=== PATIENT | male | born 2005 | race Caucasian/White ===

== ENCOUNTER 2024-01-21 06:09 | Emergency (ER) | payer OTHER, MEDICAID, SELFPAY ==
[2024-01-21 06:11] VITALS: BP 137/79; PULSE 72; RESP 20; TEMP 36.4; O2SAT 100
[2024-01-21 06:34] LABS: Basophils Absolute Auto 0.1 K/mm3 (0.0-0.1); Basophils Percent Auto 0.6 % (0.2-1.2); Eosinophils Absolute Auto 0.2 K/mm3 (0-0.3); Eosinophils Percent Auto 1.8 % (0-4.4); Hematocrit 47.8 % (42.0-52.0); Hemoglobin 16.4 g/dL (14.0-18.0); Immature Granulocyte Absolute 0.05 K/mm3 (0.00-0.031); Immature Granulocyte Percent A 0.5 % (0-0.5); Lymphocytes Absolute Auto 2.83 K/mm3 (0.9-3.2); Lymphocytes Percent Auto 27.7 % (18.3-44.2); Mean Corpuscular HGB Conc 34.3 g/dl (32-36); Mean Corpuscular Hemoglobin 29.3 pg (26-34); Mean Corpuscular Volume 85.5 fl (80-100); Mean Platelet Volume 9.6 fl (7.4-10.4); Monocytes Absolute Auto 0.6 K/mm3 (0.1-0.6); Neutrophils Absolute Auto 6.5 K/mm3 (1.3-6.7); Neutrophils Percent Auto 63.4 % (45.5-73.1); Platelet Count Result 294 k/mm3 (150-375); Red Blood Count 5.59 M/mm3 (4.6-6.20); Red Cell Distribution Width 12.2 % (11.5-14.5); White Blood Count 10.2 K/mm3 (4.5-10.0)
[2024-01-21 06:35] LABS: Appearance Urine Clear (Clear); Bilirubin Urine Negative (Negative); Blood Urine Negative (Negative); Color Urine Yellow (Yellow); Glucose Urine UA Negative (Negative); Ketones Urine Trace mg/dL (Negative); Leukocyte Esterase Ur Negative LEU/UL (Negative); Nitrate Urine Negative (Negative); Protein Urine Negative (Negative); Specific Grav Ur 1.023 (1.001-1.035)
[2024-01-21 06:38] VITALS: BP 149/79; PULSE 77
[2024-01-21 06:39] VITALS: BP 113/99; BP 130/97; PULSE 103; PULSE 92
[2024-01-21 06:43] LABS: Alanine Aminotransferase 23 U/L (6-50); Albumin Level 4.8 g/dL (3.7-5.6); Alkaline Phosphatase 94 U/L (58-237); Anion Gap 11 mmol/L (4-12); Aspartate Amino Transferase 27 U/L (17-59); Bilirubin,Total 0.5 mg/dL (0.2-1.3); Blood Urea Nitrogen 12 mg/dL (8-21); Calcium 9.8 mg/dL (8.9-10.7); Carbon Dioxide 25 mmol/L (22-30); Chloride 104 mmol/L (98-107); Estimated CRCL calculation 125 ml/min; Estimated Glomerular Filt Rate > 60; Glucose 104 mg/dL (65-110); Lipase 108 U/L (23-300); Potassium 3.5 mmol/L (3.4-5.0); Sodium 140 mmol/L (134-143)
[2024-01-21 07:05] LABS: Add Urine Microscopic? NO
[2024-01-21 07:13] LABS: Barbiturate Screen Urine Negative (Negative); Benzodiazepines Screen Urine Negative (Negative)
--- NOTE | 2024-01-21 07:15 | ED.GENADULT ---
HPI - General Adult General Chief complaint: Nausea/Vomiting/Diarrhea Stated complaint: n/v. Vomiting blood Time Seen by Provider: 01/21/24 06:54 History of Present Illness HPI narrative: 18-year-old Male presenting to the emergency department for evaluation of persistent nausea and vomiting patient states for the last few years he has had increased episodes of nausea and vomiting. Patient states he does attributed to different foods that he eats. Patient does admit to frequent marijuana use. Patient states this morning he had emesis and did have some specks of blood in it so he became concerned and presented to the emergency department for evaluation. Related Data Allergies Allergy/AdvReac Type Severity Reaction Status Date / Time No Known Allergies Allergy Verified 01/21/24 06:14 Review of Systems Review of Systems: All systems reviewed & are unremarkable except as noted in HPI and below Exam Narrative: APPEARANCE: Well appearing, no pain, no distress, well-nourished. HEAD: normocephalic, atraumatic. EYES: PERRLA/EOMI, conjunctivae clear. NOSE: Normal no drainage EARS:TMS clear with good light reflex. THROAT: Pharynx clear, no exudate. NECK: Supple. No adenopathy, no masses. RESPIRATORY: Airway patent, respirations nonlabored. Clear to auscultation bilaterally, no rales, rhonchi, wheezing. CARDIOVASCULAR: Regular rate and rhythm without murmurs rubs or gallops. ABDOMINAL: Soft, nontender, nondistended, normal bowel sounds MUSCULOSKELETAL: Moves all extremities. Strength/ROM intact, No edema, No calf tenderness. NEURO: Alert. Cranial nerves II through XII intact. Grossly intact SKIN: Warm, dry. Normal Color Course Vital Signs Vital signs: Vital Signs Temperature 97.5 F L 01/21/24 06:11 Pulse Rate 72 01/21/24 06:11 Respiratory Rate 20 01/21/24 06:11 Blood Pressure 137/79 01/21/24 06:11 Pulse Oximetry 100 01/21/24 06:11 Oxygen Delivery Room Air 01/21/24 06:11 Temperature 98.1 F 01/21/24 09:30 Pulse Rate 84 01/21/24 09:30 Respiratory Rate 14 01/21/24 09:30 Blood Pressure 124/73 01/21/24 09:30 Pulse Oximetry 100 01/21/24 09:30 Oxygen Delivery Room Air 01/21/24 06:11 Medical Decision Making MDM Narrative Medical decision making narrative: 18-year-old male present to the emergency department for evaluation for recurrent nausea and vomiting. Patient is afebrile but does have a leukocytosis of 10.2 in a stable hemoglobin of 16.4, no abnormalities on the patient's CMP and UA had no significant abnormalities, patient was positive for cannabinoids but does admit to smoking THC. Patient was negative for influenza RSV and for COVID. Patient was updated the results of his workup and was strongly recommended to refrain from THC and to educate himself on cannabinoid hyperemesis syndrome. Patient was also encouraged to have close follow-up with GI due to his recurrent symptoms. Patient was also advised to follow a bland diet and take omeprazole for the next 14 days. Differential Diagnosis Differential Diagnosis: Cannabinoid hyperemesis syndrome, gastritis, gastroenteritis Vital Signs Vital Signs: Vital Signs Temperature 97.5 F L 01/21/24 06:11 Pulse Rate 72 01/21/24 06:11 Respiratory Rate 20 01/21/24 06:11 Blood Pressure 137/79 01/21/24 06:11 Pulse Oximetry 100 01/21/24 06:11 Oxygen Delivery Room Air 01/21/24 06:11 Temperature 98.1 F 01/21/24 09:30 Pulse Rate 84 01/21/24 09:30 Respiratory Rate 14 01/21/24 09:30 Blood Pressure 124/73 01/21/24 09:30 Pulse Oximetry 100 01/21/24 09:30 Oxygen Delivery Room Air 01/21/24 06:11 Lab Data 01/21/24 06:26 01/21/24 06:26 Labs: Lab Results 01/21/24 01/21/24 Range/Units 06:26 06:43 WBC 10.2 H (4.5-10.0) K/mm3 RBC 5.59 (4.6-6.20) M/mm3 Hgb 16.4 (14.0-18.0) g/dL Hct 47.8 (42.0-52.0) % MCV 85.5 (80-100) fl MCH 29.3 (26-34) pg
[2024-01-21 07:17] LABS: Amphetamine Screen Urine Negative (Negative); Cannabinoid Screen Urine Positive (Negative); Methadone Screen Urine Negative (Negative); Opiate Screen Urine Negative (Negative); Phencyclidine Screen Urine Negative (Negative)
[2024-01-21] MEDS: HALOPERIDOL LACTATE 5 MG/ML VIAL IM (07:25)
[2024-01-21 07:27] LABS: Influenza A QL RT-PCR Negative (Negative); Influenza B QL RT-PCR Negative (Negative); RSV RNA, RT-PCR Negative (Negative); SARS-CoV-2 RNA PCR Negative (Negative)
[2024-01-21] MEDS: PANTOPRAZOLE SODIUM IV 40 MG VIAL IV PUSH (07:27)
[2024-01-21] MEDS: SODIUM CHLORIDE 0.9% IV 1,000 ML 999 ML IV CONT (07:27)
[2024-01-21 07:29] LABS: Cocaine Screen Urine Negative (Negative)
[2024-01-21 07:32] VITALS: BP 111/58; PULSE 58; RESP 17; O2SAT 96
[2024-01-21 08:33] VITALS: BP 144/89; PULSE 67; RESP 10; O2SAT 100
[2024-01-21] MEDS: ONDANSETRON INJ 4 MG/2 ML VIAL IV PUSH (09:20)
[2024-01-21 09:30] VITALS: BP 124/73; PULSE 84; RESP 14; TEMP 36.7; O2SAT 100
== END 2024-01-21 09:32 | disposition home or self-care (01) ==
PROVIDERS: Emergency Medicine; Emergency Provider Emergency Medicine
DX: R11.2 Nausea with vomiting, unspecified (principal); Z20.822 Contact with and (suspected) exposure to COVID-19
CPT/HCPCS: 36415; 80053; 80307; 81003; 83690; 85025; 87637; 96361; 96372; 96374; 96375; 99284; C9113; J1630; J2405; J7030

== ENCOUNTER 2025-05-12 19:20 | Emergency (ER) | payer OTHER, SELFPAY ==
[2025-05-12] VITALS (23 sets, daily range): BP systolic 109–144; BP diastolic 58–117; PULSE 61–98; RESP 10–22; TEMP 35.9–36.9; O2SAT 91–100
--- NOTE | ~2025-05-12 | XR_ITS ---
EXAMINATION: XR chest 1V portable 05/12/2025 21:18 INDICATION: Overdose PROCEDURE: AP portable chest COMPARISON: No prior studies for comparison. FINDINGS: The lungs are clear. The cardiomediastinal silhouette is within normal limits. There are no pleural effusions. There is no pneumothorax suspected. IMPRESSION: 1: NO ACUTE CARDIOPULMONARY DISEASE. Reviewed, dictated and finalized at location A.
--- OUTSIDE RECORDS SUMMARY | 2025-05-12 19:22 | XMS_ITS | Clinical Summary ---
Author Organization [facility] Address [address] [place] [address] Care Team Providers Care Registered Public Health Nurse Name Role Phone None, Provider MD Primary Care Provider Unavaila ble None, Provider MD Unavailable Unavailable Allergies No known active allergies Medications busPIRone (BUSPAR) 5 MG tablet Take 1 tablet (5 mg total) by mouth 2 (two) times daily. Active lamoTRIgine (LAMICTAL) 100 MG tablet Take 1 tablet (100 mg total) by mouth daily. 3 Active busPIRone (BUSPAR) 15 MG tablet Take 1 tablet (15 mg total) by mouth 3 (three) times daily as needed. FOR ANXIETY 3 Active risperiDONE (RISPERDAL) 0.5 MG tablet Take 1 tablet (0.5 mg total) by mouth daily. 3 Active risperiDONE (RISPERDAL) 1 MG tablet Take 1 tablet (1 mg total) by mouth daily. 3 Active ondansetron (ZOFRAN-ODT) 4 MG disintegrating tablet Take 1 tablet (4 mg total) by mouth every 8 (eight) hours as needed for Nausea. 15 tablet 3 Active lidocaine (LIDO SCAR) 4 % patch Place 1 patch onto the skin daily. Remove & Discard patch within 12 hours or as directed 30 patch 3 Active ondansetron (ZOFRAN-ODT) 4 MG disintegrating tablet Take 1 tablet (4 mg total) by mouth every 8 (eight) hours as needed for Nausea. 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 Gender Identity Not on file Sexual Orientation Not on file Last Filed Vital Signs Vital Sign Reading Time Taken Comments Blood Pressure 130/86 03/25/2024 8:58 PM CDT Pulse 93 03/25/2024 8:58 PM CDT Temperature 36.9 C (98.5 F) 03/25/2024 8:58 PM CDT Respiratory Rate 20 03/25/2024 8:58 PM CDT Oxygen Saturation 100% 03/25/2024 8:58 PM CDT Inhaled Oxygen Concentration - - Weight 74.8 kg (165 lb) 03/25/2024 8:58 PM CDT Height 170.2 cm (5' 7) 03/25/2024 8:58 PM CDT Body Mass Index 25.84 03/25/2024 8:58 PM CDT Plan of Treatment Health Maintenance Due Date Last Done Comments Annual Physical 2007 Meningococcal B Vaccine (1 of 2 - Standard) 2020 Hepatitis C 2022 COVID-19 Vaccine ( season) 2024 DTaP, Tdap and Td Vaccines (6 - Td or Tdap) 09/25/2032 09/25/2022, 04/13/2015, 02/29/2008, Additional history exists Pneumococcal Vaccine: Pediatrics (0 to 5 Years) and At-Risk Patients (6 to 49 Years) Aged Out 04/13/2005, 2004, 2004 No longer eligible based on patient's age to complete this topic Hepatitis B Vaccines Completed 07/21/2005, 2004, 2004, Additional history exists HPV Vaccines Completed 07/03/2019, 08/0 09/2016, 04/12/2016 Meningococcal Vaccine Completed 05/06/2022 RSV Immunizations Under 20 Months Aged Out No longer eligible based on patient's age to complete this topic Insurance MEDICAID Care Teams Registered Public Health Nurse Relationship Specialty Start Date End Date None, Provider, MD PCP - General UNKNOWN PHYSICIAN SPECIALTY 10/07/22 None, Provider, MD UNKNOWN PHYSICIAN SPECIALTY 10/07/22
--- OUTSIDE RECORDS SUMMARY | 2025-05-12 19:22 | XMS_ITS | Patient Health Record ---
Author Organization [facility] Address [address] [place] [address] Care Team Providers Care Appraiser Art Name Role Phone Sheila Fletcher Primary Care Provider [phone] Unavailable [phone] Allergies No Known Allergies Reason For Referral No Information Medications Medication SIG (Take, Route, Frequency, Duration) Notes Start Date End Date Status risperiDONE 0.25 MG 1 tablet at bedtime for 2 weeks then discontinue Once a day; Duration: 14 days Not-Taking busPIRone HCl 30 MG TAKE 1 TABLET BY [facility] TWICE DAILY Twice a day; Duration: 30 days Active cloNIDine HCl 0.1 MG 1 tablet Orally Three times a day; Duration: 30 days As needed for anxiety 04/24/2023 Active Ibuprofen 200 MG 1 tablet with food o r milk as needed Orally Three times a day; Duration: 30 days Active OXcarbazepine 150 MG 1 tablet Orally Twi ce a day; Duration: 30 days 12/19/2023 Active Escitalopram Oxalate 10 MG 1 tablet Orally Once a day; Duration: 30 days 02/28/2024 Active traZODone HCl 150 MG 0.5 - 1 tablet at bedtime Orally Once a day; Duration: 30 days As needed for insomnia Active Omeprazole 20 MG 1 capsule 30 minutes before morning meal Orally Once a day; Duration: 30 days 01/24/2024 Active Social History Tobacco Use: Social History Observation Description Date Details (start date - stop date) Never Smoker NA - NA Sex Assigned At : Social History Observation Description Sex Assigned At Male Dont use, Tobacco Use/Smoking Question Answer Notes Are you a Uses tobacco in other forms Additional Findings: Tobacco User e-Cigarette Alcohol Screen (Audit-C) Question Answer Notes Did you have a drink containing alcohol in the p ast year? 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) Chemical dependency (F19.20) Active confirmed Problem Anxiety about health (024760088) Anxiety about health (F41.8) Active confirmed Problem Nightmares (557410809) Nightmares (F51.5) Active confirmed Problem Acid reflux (685032721) Acid reflux (K21.9) Active confirmed Problem Polysubstance abuse (176271933) Polysubstance abuse (F19.10) Active confirmed Plan Of Treatment No Information Insurance Providers Payer Name Payer Address Payer Phone Subscriber Number Group Number Insured Name Patient Relationship to Insured Coverage Start Date Coverage End Date [facility] [address] [place] [address] [id number] Feli Reginaldo Self - patient is the insured 3 [address] [place] [address] [id number] Reginaldo Edmond Self - patient is the insured 3 MEDICAID [facility] [address] [place] [address] [id number] Reginaldo Edmond Self - patient is the insured 3 3 Medical (General) History Medical History History ICD Code asthma Surgical History Surgery Date(Month/Year) Hospitalization History Reason Date(Month/Year) [facility] 12/2023 Chest pain - [facility] 03/14 23 inpatient psychiatric hospitalization
--- OUTSIDE RECORDS SUMMARY | 2025-05-12 19:22 | XMS_ITS | Encounter Summary ---
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 us Historical Provider Final Res ult documented in this encounter Visit Diagnoses Not on filedocumented in this encounter Additional Health Concerns Infection Onset Date Last Indicated Resolved Time COVID: Suspected 07/16/2024 07/16/2024 07/17/2024 12:18 AM CDT COVID: Suspected 12/09/2024 12/09/2024 12/09/2024 3:59 PM CDT COVID: Suspected 02/11/2025 02/11/2025 02/11/2025 2:23 PM CDT RSV, droplet 02/11/2025 02/11/2025 02/18/2025 7:2 7 PM CDT COVID: Suspected 03/12/2025 03/12/2025 03/12/2025 12:16 PM CDT documented as of this encounter Care Teams Director Hardware Relationship Specialty Start Date End Date Bogdan Garcia MD [address] [place] [address] PCP - General Family Medicine 04/01/19 07/17/23 No, Physician PCP - General 07/18/23 documented as of this encounter
--- OUTSIDE RECORDS SUMMARY | 2025-05-12 19:22 | XMS_ITS | Clinical Summary ---
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 Name Role Phone No, Physician Primary Care Provider [phone] Allergies No known active allergies Medications lamoTRIgine (LaMICtal) 100 mg tablet Take 1 tablet (100 mg total) by mouth 2 (two) times a day Active busPIRone (BUSPAR) 30 mg tablet Take 1 tablet (30 mg total) by mouth 3 (three) times a day Active QUEtiapine XR (SEROquel XR) 150 mg 24 hr tablet Take 1 tablet (150 mg total) by mouth every evening Active cloNIDine (CATAPRES) 0.1 mg tablet Take 1 tablet (0.1 mg total) by mouth daily 04/24/2023 Active traZODone (DESYREL) 50 mg tablet 1 tablet (50 mg total) nightly Active prazosin (MINIPRESS) 2 mg capsule daily 05/22/2023 Active promethazine (PHENERGAN) 25 mg tablet Take 1 tablet (25 mg total) by mouth every 6 (six) hours as needed for nausea or vomiting 15 tablet 07/17/2024 Active amoxicillin-cla vulanate (AUGMENTIN) 875-125 mg per tablet Take 1 tablet by mouth every 12 (twelve) hours 14 tablet 12/09/2024 Active meloxicam (MOBIC) 7.5 mg tablet Take 1 tablet (7.5 mg total) by mouth daily 20 tablet 02/11/2025 Active Active Problems Problem Noted Date Diagnosed Date Dislocation of right ankle joint, initial encoun ter 06/24/2023 Conduct disorder, adolescent-onset type 04/25/20 17 Phimosis 02/24/2009 Encounters Date Type Department Care Team Description 03/12/2025 11:36 AM CDT - 03/12/2025 2:18 PM CDT Emergency [facility] Emergency Department [address] [place] [address] Jose Armando Mitchell, DO Seizure-like activity (HCC) (Primary Dx); Polysubstance abuse (HCC) Discharge Disposition: Discharge to home or self care 02/11/2025 1:54 PM CDT - 02/11/2025 3:15 PM CDT Emergency [facility] Emergency Department [address] [place] [address] Acute pain of right shoulder (Primary Dx); Acute upper respiratory infection due to respiratory syncytial virus (RSV); Screening examination for STD (sexually transmitted disease) Discharge Disposition: Discharge to home or self care from Last 3 Months Immunizations Immunization Administration Dates Next Due DTaP 02/29/2008,04/13/2005 DTaP / Hep B / IPV 2004,2004 DTaP 5 Pertussis 04/13/2015, 8,2004,11/08,2004 HPV, Unspecified 07/03/2019,04/25/2017, 6 HPV9 04/25/2017,04/12/2016 Hep A, Pediatric 01/26/2009,03/23/2008 Hep A, Unspecified 01/26/2009,03/23/2008 Hep B, Adolescent or Pediatric 07/21/2005,2003 Hep B, Unspecified 07/21/2005, 5,2004,10/29,2004 HiB 07/21/2005, 5,2004,10/29,2004 Hib (HbOC) 07/21/2005, 5,2004,08/20 IPV 07/10/2019, 5,2004,11/08,2004 Influenza, Quadrivalent, Spl it, Preservative Free, Intramuscular 07/01/2019 Influenza, Unspecified 07/12/2024(Deferr ed: Patient decision),07/12/2023(Deferred: Patient decision),09/04/2014,08/06/2008,2004 MMR 01/26/2009,02/28/2006 Meningococcal Conjugate (Menveo) 05/06/2022 Meningococcal MCV4P (Menactra) 04/12/2016 Pneumococcal Conjugate 7-Valent 2004,10/29 Pneumococcal Conjugate, Unspecified 03/26,2004,2004,10/29 TD Preservative Free 03/12/2023 Tdap 09/25/2022,04/12/2016 Varicella 02/26/2009,02/28/2005 Surgical History Surgery Date Site/Laterality Comments CIRCUMCISION, PRIMARY Family History Medical History Relation Name Comments Diabetes Paternal Grandfather Relation Name Status Comments Paternal Grandfather Social History Tobacco Use Types Packs/Day Years Used Date Smoking Tobacco: Never Smokeless Tobacco: Never Tobacco Cessation:Counseling Given: Not Answered Alcohol Use Standard Drinks/Week Comments Never 0 (1 standard drink = 0.6 oz pur e alcohol) AUDIT-C Answer Date Recorded Q1: How often do you have a drink containing alcohol? Never 06/25/2023 Q2: How many drinks containi ng alcohol do you have on a typical day when you are drinking? Patient does not drink Q3: How often do you have si x or more drinks on one occasion? Never 06/25/2023 PHQ-2 Answer Date Recorded PHQ-2 Score 0 05/17/2019 Personal Safety Answer Date Recorded Have you ever been in or are you currently in a harmful physical or emotional relationship or is someone making you feel afraid or unsafe? 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 Gender Identity Not on file Sexual Orientation Not on file Obstetrics History Last Filed Vital Signs Vital Sign Reading Time Taken Comments Blood Pressure 125/88 03/12/2025 2:00 PM CDT Pulse 76 03/12/2025 2:00 PM CDT Temperature 37.4 C (99.3 F) 03/12/2025 11:05 AM CDT Respiratory Rate 15 03/12/2025 2:00 PM CDT Oxygen Saturation 98% 03/12/2025 2:00 PM CDT Inhaled Oxygen Concentration - - Weight 77.7 kg (171 lb 4.8 oz) 03/12/2025 11:05 AM CDT Height 170 cm (5' 6.93) 12/09/2024 3:09 PM CDT Body Mass Index 26.89 12/09/2024 3:09 PM CDT Plan of Treatment Health Maintenance Due Date Last Done Comments Hepatitis C Screening 2004 Varicella Vaccines (2 of 2 - 2-dose childhood series) 05/21/2009 02/26/2009, 02/28/2005 Depression Screening 07/01/2020 07/01/2019, 04/01/20 19 Meningococcal B Vaccine (1 of 2 - Standard) 2020 Regular Well Visit/Exam 18-64 2022 Influenza Vaccine (#1) 2025 9, 09/04/2014, 08/06/2008, Additional history exists DTaP/Tdap/Td Vaccine (9 - Td or Tdap) 03/12/2033 03/12/2023, 09/25/2022, 04/12/2016, Additional history exists Pneumococcal vaccine <65 Aged Out 005, 2004, 2004, Additional history exists No longer eligible based on patient's age to complete this topic Hepatitis B Screening Completed 07/21/2005 , 07/21/2005, 2004, Additional history exists HPV Vaccines Completed 07/03/2019, 09/2016, 04/25/2017, Additional history exists Meningococcal Vaccine Completed 05/06/2022, 016 Medical Devices Implanted Type Area [employer] Device Identifier Shelf Expiration Date Model / Serial / Lot Synthes 2mm 28mm Self Tap Self Retain Stardrive Cortex T6 Screw Bone 201.376.97 - [id number] Implanted:Qty: 1 on 06/25/2023 by Pete William MD at [facility] Right: Ankle Synthes I 201.376.97 / / Synthes 2mm 26mm Self Tap Self Retain Stardrive Cortex T6 Screw Bone 201.375.97 - [id number] Implanted:Qty: 1 on 06/25/2023 by Pete William MD at [facility] Right: Ankle Synthes I [id number] / / Procedures Procedure Name Priority Date/Time Associated Diagnosis Comments CT HEAD WO CONTRAST ED 03/12/2025 1 2:37 PM CDT EGFR STAT 03/12/2025 11:21 AM CDT URINALYSIS, MICROSCOPIC ONLY STAT 03/12/2025 11:21 AM CDT DIFFERENTIAL AUTO STAT 03/12/2025 11: 21 AM CDT ETHANOL STAT 03/12/2025 11:21 AM CDT DRUGS OF ABUSE SCREEN, URINE WITHOUT CONFIRMATION STAT 03/12/2025 11:21 AM CDT COMPREHENSIVE METABOLIC PANEL STAT 03/12/2025 11:21 AM CDT CBC WITH AUTO DIFFERENTIAL STAT 03/12/2025 11:21 AM CDT URINE CULTURE STAT 03/12/2025 11:21 AM CDT URINALYSIS AND REFLEX TO MICROSCOPIC AND CULTURE STAT 03/12/2025 11:21 AM CDT INFLUENZA A/B, RSV, AND COVID-19 PCR STAT 03/12/2025 11:21 AM CDT TRICHOMONAS VAGINALIS PCR STAT 02/11/2025 2:26 PM CDT N. GONORRHOEAE/C. TRACHOMATIS AMPLIFICATION STAT 02/11/2025 2:26 PM CDT XR SHOULDER LEFT 2 OR MORE VIEWS ED 02/11/2025 1:47 PM CDT INFLUENZA A/B, RSV, AND COVID-19 PCR STAT 02/11/2025 1:36 PM CDT from Last 3 Months Results * CT Head WO Contrast (03/12/2025 12:37 PM CDT) Anatomical Region Laterality Modality Head and Neck N/A Computed Tomogra phy 03/12/2025 1:06 PM CDT Narrative 03/12/2025 1:09 PM CDT EXAM DESCRIPTION: CT HEAD WO CONTRAST REASON FOR STUDY: Seizure, new-onset, no history of trauma TECHNIQUE: Axial images acquired through the brain without intravenous contrast. Images stored on PACS. Automated exposure control was used as a dose optimization technique for this examination. COMPARISON: 07/24/2016. FINDINGS: BRAIN: No acute intraparenchymal hemorrhage, cerebral edema, hydrocephalus, mass, or mass effect. EXTRA-AXIAL SPACES: No extra-axial fluid collection or mass. CALVARIUM: No acute skull base or calvarial abnormality. SINUSES/MASTOIDS: Predominantly clear. ORBITS: No significant abnormality. OTHER: No other significant abnormality. IMPRESSION: No evidence of an acute intracranial abnormality. THIS IS AN ELECTRONICALLY VERIFIED FINAL REPORT 03/12/2025 1:09 PM - Electronically signed by Vladimir Clement M.D. CH: Report ID: [id number] Reading Location: [id number] Procedure Note Vladimir Clement Jr., MD - 03/12/2025 EXAM DESCRIPTION: CT HEAD WO CONTRAST REASON FOR STUDY: Seizure, new-onset, no history of trauma TECHNIQUE: Axial images acquired through the brain without intravenous contrast. Images stored on PACS. Automated exposure control was used asa dose optimization technique for this examination. COMPARISON: 07/24/2016. FINDINGS: BRAIN: No acute intraparenchymal hemorrhage, cerebral edema,hydrocephalus, mass, or mass effect. EXTRA-AXIAL SPACES: No extra-axial fluid collection or mass. CALVARIUM: No acute skull base or calvarial abnormality. SINUSES/MASTOIDS: Predominantly clear. ORBITS: No significant abnormality. OTHER: No other significant abnormality. IMPRESSION: No evidence of an acute intracranial abnormality. THIS IS AN ELECTRONICALLY VERIFIED FINAL REPORT 03/12/2025 1:09 PM - Electronically signed by Vladimir Clement M.D. CH: Report ID: [id number] Reading Location: [place] [address] Jose Armando Mitchell DO IMG CT PROCEDURES Final Res ult * Influenza A/B, RSV, and COVID-19 PCR Nasopharyngeal (03/12/2025 11:21 AM CDT) [facility] COVID-19 RNA Negative Negative Comment:Testing performed by : [address] [address] Influenza A RNA Negative Negative [facility] Comment:Testing performed by : [address] [address] Influenza B RNA Negative Negative [facility] Comment:Testing performed by : [address] [address] RSV RNA Negative Negative [facility] Comment: Interpretive data: Testing performed by [facility]. This test is performed using the Exam18 Xpert Xpress CoV-2/Flu/RSV plus assay. This is a multiplex, real-time reverse transcriptase PCR assay intended for the qualitative detection of nucleic acid from SARS-CoV-2, influenza A, influenza B, and respiratory syncytial virus. This assay has been cleared by the [place] Food and Drug administration. The performance characteristics have been verified by the [facility]. Results must be considered in the clinical context, and a negative result does not rule out infection. Interpretive Data last revised 2023 Testing performed by: [address] [address] Nasopharyngeal 03/12/2025 11 :21 AM CDT 03/12/2025 11:30 AM CDT Narrative JENSEN - 03/12/2025 12:15 PM CDT Is the Patient experiencing symptoms consistent with COVID?->Unknown [facility] MICROBIOLOGY - GENERAL OR DERABLES Final Result Performing Organization Address [facility] Co de Phone Number JENSEN [address] [place] [address] * eGFR (03/12/2025 11:21 AM CDT) Pathologist [facility] eGFR >90 >=60 mL/min/1. 73 m2 Comment: Interpretive Data Reference Interval Normal >/= 90 mL/min/1.73m2 Mildly decreased* 60 - 89 mL/min/1.73m2 Mildly to moderately decreased 45 - 59 mL/min/1.73m2 Moderately to severely decreased 30 - 44 mL/min/1.73m2 Severely decreased 15 - 29 mL/min/1.73m2 Kidney Failure < 15 mL/min/1.73m2 *Relative to young adult level Estimated glomerular filtration rate is determined by the 2020 CKD-EPI equation recommended by the National Kidney Foundation (A Unifying Approach to GFR Estimation: Recommendations of the NKF-ASK Task Force on Reassessing the Inclusion of Race in Diagnosing Kidney Disease, JASN 2020). The CKD-EPI equation should not be used for patients with unstable renal function and has not been validated in children and those over 70. Current interpretive data was last reviewed 2021. Testing performed by: [facility], [address] [place] [address]., [id number] Blood 03/12/2025 11:2 1 AM CDT 03/12/2025 11:30 AM CDT [facility] BLOOD ORDERABLES Final Re sult Performing Organization Address [facility]/ZIP Co de Phone Number JENSEN [address] [place] [address] * (ABNORMAL) Differential, auto (03/12/2025 11:21 AM CDT) Pathologist [facility] Neutrophil abs 10.32(H) 1.50 - 6.50 K/cumm Comment:Testing performed by : [address], [place]., [address] Imm gran abs 0.08 0.00 - 0.10 K/cumm [facility] Comment:Testing performed by : [address], [place]., [address] Lymphocyte abs 2.26 0.80 - 3.30 K/cumm [facility] Comment:Testing performed by : [address], [place]., [address] Monocyte abs 0.58 0.20 - 0.80 K/cumm [facility] Comment:Testing performed by : [address], [place]., [address] Eosinophil abs 0.07 0.00 - 0.50 K/cumm [facility] Comment:Testing performed by : [address], [place]., [address] Basophil abs 0.06 0.00 - 0.10 K/cumm [facility] Comment:Testing performed by : [address] [address] Neutrophil pct 77.3 % [facility] Comment: Interpretive Data Percent cell count reference ranges are not reported, since discordance with absolute values may lead to misinterpretation of CBC data. Current Interpretive Data was last revised on 2018. Testing performed by: [address] [address] Imm gran pct 0.6 % [facility] Comment: Interpretive Data Percent cell count reference ranges are not reported, since discordance with absolute values may lead to misinterpretation of CBC data. Current Interpretive Data was last revised on 2018. Testing performed by: [address] [address] Lymphocyte pct 16.9 % [facility] Comment: Interpretive Data Percent cell count reference ranges are not reported, since discordance with absolute values may lead to misinterpretation of CBC data. Current Interpretive Data was last revised on 2018. Testing performed by: [address] [address] Monocyte pct 4.3 % [facility] Comment: Interpretive Data Percent cell count reference ranges are not reported, since discordance with absolute values may lead to misinterpretation of CBC data. Current Interpretive Data was last revised on 2018. Testing performed by: [address] [address] Eosinophil pct 0.5 % JENSEN Comment: Interpretive Data Percent cell count reference ranges are not reported, since discordance with absolute values may lead to misinterpretation of CBC data. Current Interpretive Data was last revised on 2018. Testing performed by: [address] [address] Basophil pct 0.4 % JENSEN Comment: Interpretive Data Percent cell count reference ranges are not reported, since discordance with absolute values may lead to misinterpretation of CBC data. Current Interpretive Data was last revised on 2018. Testing performed by: [address] [address] Blood 03/12/2025 11:2 1 AM CDT 03/12/2025 11:30 AM CDT us [facility] BLOOD ORDERABLES Final Re sult JENSEN [address] [facility] Department [place] [address] * (ABNORMAL) Urinalysis reflex to microscopic and culture Urine (03/12/2025 11:21 AM CDT) Color, ur Yellow Yellow Comment:Testing performed by : [address] [address] Clarity, ur Turbid(A) Clear JENSEN Comment:Testing performed by : [address] [address] Specific gravity, ur 1.025 1.003 - 1.030 JENSEN Comment:Testing performed by : [address] [address] pH, urine 5.5 JENSEN Comment: Interpretive Data U rine pH is affected by diet, medications, systemic acid-base disturbances, and renal tubular function. pH may affect urinary stone formation. For example, urine pH below 6.0 may help reduce the tendency for calcium phosphate stones and pH greater than 6.0 may reduce the tendency for uric acid stone formation. Source: [facility] Current Interpretive Data was last revised on 2017 Testing performed by: [facility], [address] [place] [address], [place]., [address] Protein, ur ql Negative Negative JENSEN ISLAS Comment:Testing performed by : [address] [address] Glucose, ur ql Negative Negative JENSEN Comment:Testing performed by : [address], [place]., [address] Ketones, ur Negative Negative JENSEN Comment:Testing performed by : [address] [address] Bilirubin, ur Negative Negative JENSEN Comment:Testing performed by : [address], [place]., [address] Blood, ur 1+(A) Negative J[facility]EN ISLAS Comment:Testing performed by : [address], [place]., [address] Urobilinogen, ur <2.0 <2.0 mg/dL JENSEN Comment:Testing performed by : [address] [address] Nitrite, ur Negative Negative JENSEN Comment:Testing performed by : [address], [place]., [address] Leukocyte esterase, ur Negative Negative JENSEN Comment:Testing performed by : [address] [address] UA reflex comment Reflex to microscopic UA will be performed. JENSEN Comment:Testing performed by : [address] [address] Urine 03/12/2025 11:2 1 AM CDT 03/12/2025 11:30 AM CDT us [facility] MICROBIOLOGY - GENERAL OR DERABLES Final Result JENSEN ISLAS [address] [facility] Department [place] [address] * (ABNORMAL) CBC with auto differential (03/12/2025 11:21 AM CDT) [facility] WBC 13.37(H) 3.80 - 9.90 K/cumm Comment:Testing performed by : [address], [address] Hgb 17.9(H) 13.0 - 17.5 g/dL JENSEN Comment:Testing performed by : [address], [address] Hct 51.2(H) 38.9 - 50.3 % JENSEN Comment:Testing performed by : [address], [address] Plt 259 150 - 400 K/cumm JENSEN Comment:Testing performed by : [address], [address] MPV 10.0 9.1 - 12.3 fL JENSEN Comment:Testing performed by : [address], [address] RBC 6.08(H) 4.30 - 5.80 M/cumm JENSEN Comment:Testing performed by : [address], [address] MCV 84.2 81.3 - 96.4 fL JENSEN Comment:Testing performed by : [address], [address] MCH 29.4 27.1 - 33.3 pg JENSEN Comment:Testing performed by : [address], [address] MCHC 35.0 32.3 - 35.7 g/dL JENSEN Comment:Testing performed by : [address], [address] RDW CV 13.1 11.1 - 14.9 % JENSEN Comment:Testing performed by : [address], [address] RDW SD 39.9 35.7 - 48.1 fL JENSEN Comment:Testing performed by : [address], [address] NRBC abs 0.00 0.00 - 0.01 K/cumm JENSEN Comment:Testing performed by : [facility], [address] [place] [address]., [address] Blood 03/12/2025 11:2 1 AM CDT 03/12/2025 11:30 AM CDT [facility] BLOOD ORDERABLES Final Re sult JENSEN [address] [facility] Department [place] [address] * (ABNORMAL) Drugs of Abuse Screen, Urine without Confirmation (03/12/2025 11:21 AM CDT) [facility] Amphetamine, ur Not Detected CutOff 500ng/mL Comment: Interpretive Data - Amphetamines: Samples containing greater than 500 ng/mL d-methamphetamine or other cross-reacting amphetamine compounds are reported as positive. Amphetamine immunoassays are subject to significant false positive rates due to cross-reactivity of non-amphetamine drugs. Confirmatory testing required for definitive results. Current Interpretive Data was last reviewed 2023. Testing performed by: [address] [address] Barbiturates, ur Not Detected CutOff 200ng/mL JENSEN Comment: Interpretive Data - Barbiturates: Samples containing greater than 200 ng/mL secobarbital or other cross-reacting barbiturate compounds are reported as positive. False positive and false negative results are possible. Confirmatory testing required for definitive results. Current Interpretive Data was last reviewed 2023. Testing performed by: [address] [address] Benzodiazepines, ur Screen Positive, presumptive (A) CutOff 100ng/mL JENSEN Comment: Interpretive Data - Benzodiazepines: Samples containing greater than 100 ng/mL nordiazepam or other cross-reacting compounds are reported as positive. False positive and false negative results are possible. Confirmatory testing required for definitive results. Current Interpretive Data was last reviewed 2023. Testing performed by: [address] [address] Cannabinoids, ur Screen Positive, presumptive (A) CutOff 50 ng/mL [facility] Comment: Interpretive Data - Cannabinoids: Samples containing greater than 50 ng/mL delta-9 THC -COOH or other cross- reacting compounds are reported as positive. False positive and false negative results are possible. Confirmatory testing required for definitive results. Current Interpretive Data was last reviewed 2023. Testing performed by: [facility], [address] [place] [address]., [address] Cocaine, ur Not Detected CutOff 150ng/mL [facility] Comment: Interpretive Data - Cocaine: Samples containing greater than 150 ng/mL benzoylecgonine or other cross- reacting compounds are reported as positive. False positive and false negative results are possible. Confirmatory testing required for definitive results. Current Interpretive Data was last reviewed 2023. Testing performed by: [facility], [address] [place] [address]., [address] Fentanyl, Ur Not Detected CutOff 5 ng/mL [facility] Comment: Interpretive Data - Fentanyl: Samples containing greater than 1 ng/mL fentanyl or other cross-reacting fentanyl compounds are reported as positive. False positive and false negative results are possible. Confirmatory testing required for definitive results. Current Interpretive Data was last reviewed 2023. Testing performed by: [address] [address] Methadone, ur Not Detected CutOff 300ng/mL [facility] Comment: Interpretive Data - Methadone: Samples containing greater than 300 ng/mL d,l-methadone or other cross-reacting compounds are reported as positive. False positive and false negative results are possible. Confirmatory testing required for definitive results. Current Interpretive Data was last reviewed 2023. Testing performed by: [address] [address] Opiates, ur Not Detected CutOff 300ng/mL [facility] Comment: Interpretive Data - Opiates: Samples containing greater than 300 ng/mL morphine or other cross-reacting compounds are reported as positive. False positive and false negative results are possible. Confirmatory testing required for definitive results. Current Interpretive Data was last reviewed 2023. Testing performed by: [address] [address] Oxycodone, ur Not Detected CutOff 100ng/mL [facility] Comment: Interpretive Data - Oxycodone: Samples containing greater than 100 ng/mL oxycodone or other cross-reacting compounds are reported as positive. False positive and false negative results are possible. Confirmatory testing required for definitive results. Current Interpretive Data was last reviewed 2023. Testing performed by: [address] [address] Phencyclidine, ur Not Detected CutOff 25 ng/mL JENSEN Comment: Interpretive Data - Phencyclidine: Samples containing greater than 25 ng/mL phencyclidine or other cross-reacting compounds are reported as positive. False positive and false negative results are possible. Confirmatory testing required for definitive results. Current Interpretive Data was last reviewed 2023. Testing performed by: [address] [address] Urine Creatinine 235 mg/dL JENSEN Comment: Interpretive Data Urine Creatinine: < 10 mg/dL is extremely dilute = or > 10 but < 20 mg/dL is dilute = or > 20 mg/dL is normal Current Interpretive Data was last revised on 2017. Testing performed by: [address] [address] Urine 03/12/2025 11:2 1 AM CDT 03/12/2025 11:30 AM CDT Narrative [facility] - 03/12/2025 11:56 AM CDT Drug of Abuse screening is performed by immunoassay for medical purposes only. This is not to be used for Pain Management purposes. [facility] URINE ORDERABLES Final Re sult [facility] [address] [facility] Department [place] [address] * (ABNORMAL) Urinalysis, microscopic only (03/12/2025 11:21 AM CDT) WBC, ur 11-20(A) 0 - 5 /HPF Comment:Testing performed by : [address] [address] RBC, ur 3-5(A) 0 - 2 /HPF JENSEN Comment:Testing performed by : [facility], [address] [place] [address]., [address] Epithelial cells, squamous, ur 1-5 0 - 5 /HPF JENSEN Comment:Testing performed by : [facility], [address] [place] [address]., [address] Yeast, ur 1+(A) JENSEN Comment:Testing performed by : [address] [address] Mucous, ur Present(A) JENSEN Comment:Testing performed by : [address], [place]., [address] Culture Reflex Comment Reflex to urine culture will be performed. JENESN Comment:Testing performed by : [address] [address] Urine 03/12/2025 11:2 1 AM CDT 03/12/2025 11:30 AM CDT Zarina HURTADO LAB URINE ORDERABLES Final Re sult Performing Organization Address [facility] Co de Phone Number [facility] [address] [facility] [facility] Department [place] [address] * Urine culture Urine (03/12/2025 11:21 AM CDT) Report Final Report: Less than 100,000 colonies/mL (clinically insignificant growth based on current clinical standards) Comment:Testing performed by : [facility], [address] [facility]., [address] Organism (CLINICALLY INSIGNIFICANT GROWTH JENSEN Urine 03/12/2025 11:2 1 AM CDT 03/12/2025 5:38 PM CDT Narrative JENSEN - 03/13/2025 7:25 PM CDT Urine culture reflexed based upon urinalysis results. Testing performed by [facility] ([phone]) Zarina HURTADO LAB MICROBIOLOGY - GENERAL OR DERABLES Final Result Performing Organization Address [facility]/ZIP Co de Phone Number JENSEN [address] [facility] [facility] Department [place] [address] * Ethanol (03/12/2025 11:21 AM CDT) Pathologist [facility] Ethanol <10 <=10 mg/dL Comment: Interpretive Data Legal limit of intoxication > or = 80 mg/dL Levels > or = 400 mg/dL are potentially TOXIC. Current interpretive data was last revised on 2018. Testing performed by: [address] [address] Blood 03/12/2025 11:2 1 AM CDT 03/12/2025 11:30 AM CDT Zarina HURTADO LAB BLOOD ORDERABLES Final Re sult JENSEN [address] [facility] Department [place] [address] * Comprehensive metabolic panel (03/12/2025 11:21 AM CDT) [facility] Sodium 138 135 - 145 mmol/L Comment:Testing performed by : [address] [address] Potassium, pl 4.6 3.3 - 4.9 mmol/L JENSEN Comment:Testing performed by : [address] [address] Chloride 100 97 - 110 mmol/L JENSEN Comment:Testing performed by : [address] [address] CO2 26 22 - 32 mmol/L JENSEN Comment:Testing performed by : [address] [address] Anion gap 12 2 - 15 mmol/L JENSEN Comment:Testing performed by : [address] [address] BUN 12 6 - 25 mg/dL JENSEN Comment:Testing performed by : [address] [address] Creatinine 0.87 0.80 - 1.30 mg/dL JENSEN Comment:Testing performed by : [address] [address] Glucose 111 70 - 199 mg/dL JENSEN Comment: Interpretive Data Fasting glucose >/= 126 mg/dl is diagnostic for diabetes. Fasting is defined as no caloric intake for at least 8 hours. Fasting glucose between 100 mg/dl to 125 mg/dl is diagnostic of prediabetes. In a patient with classic symptoms of hyperglycemia or hyperglycemic crisis, a random glucose >/= 200 mg/dl is diagnostic for diabetes. In the absence of unequivocal hyperglycemia, results should be confirmed by repeat testing. The classification and Diagnosis of Diabetes Diabetes Care 202; 46: S19-S40. Current interpretive data was last revised 2022. Testing performed by: [address] [address] Calcium 10.0 8.5 - 10.3 mg/dL JENSEN Comment:Testing performed by : [address] [address] Bilirubin, total 1.0 0.1 - 1.2 mg/dL JENSEN Comment:Testing performed by : [address] [address] Protein, pl 8.1 6.5 - 8.5 g/dL JENSEN Comment:Testing performed by : [address] [address] Albumin 4.9 3.5 - 5.0 g/dL JENSEN Comment:Testing performed by : [address] [address] Alk phos 102 40 - 130 Units/L JENSEN Comment:Testing performed by : [address] [address] ALT 26 7 - 55 Units/L JENSEN Comment:Testing performed by : [address] [address] AST 30 10 - 50 Units/L JENSEN Comment:Testing performed by : [address] [address] Blood 03/12/2025 11:2 1 AM CDT 03/12/2025 11:30 AM CDT Zarina HURTADO LAB BLOOD ORDERABLES Final Re sult Performing Organization Address City/[facility]/ZIP Co de Phone Number JENSEN [address] [address] * N. gonorrhoeae/C. trachomatis Amplification Urine (02/11/2025 2:26 PM CDT) C. trachomatis Not Detected Not Detected Comment:Testing performed by : [facility], [address] [place] [address]., [address] N. gonorrhoeae Not Detected Not Detected JENSEN Comment: Interpretive Data This assay detects Chlamydia trachomatis and Neisseria gonorrhoeae by nucleic acid amplification testing (NAAT). This assay has been cleared by the [place] Food and Drug administration. The performance characteristics of this test have been verified by the [facility]. The performance characteristics of this test have not been evaluated in individuals less than 14 years of age. Current Interpretive Data last revised 2023. Testing performed by: [facility], [address] [place] [address]., [address] Urine (None) 02/11/2025 2:26 PM CDT 02/11/2025 2:41 PM CDT Cassie HURTADO LAB MICROBIOLOGY - GENERAL ORDE RABLES Final Result Performing Organization Address City/[facility] Co de Phone Number JENSEN [facility] [place] [address] * Trichomonas vaginalis PCR Urine (02/11/2025 2:26 PM CDT) Trichomonas DNA Not Detected Not Detected Comment:Testing performed by : [address] [address] Urine 02/11/2025 2:26 PM CDT 02/11/2025 2:42 PM CDT Narrative JENSEN - 02/11/2025 3:54 PM CDT Interpretive Data: This assay detects Trichomonas vaginalis by nucleic acid amplification testing (NAAT). This assay has been cleared by the [place] Food and Drug administration. The performance characteristics of this test have been verified by the [facility] laboratory. Excess blood in specimens may be inhibitory and result in false negative results. The performance of this test has not been evaluated in women or individuals less than 18 years of age. Cassie HURTADO LAB MICROBIOLOGY - GENERAL ORDE MARY Final Result JENSEN [address] [facility] Department [place] [address] * XR Shoulder Left 2 or More Views (02/11/2025 1:47 PM CDT) Anatomical Region Laterality Modality Upper Extremities, Shoulder Left Comp uted Radiography 02/11/2025 2:02 PM CDT Narrative 02/11/2025 2:03 PM CDT EXAM DESCRIPTION: XR SHOULDER LEFT 2 OR MORE VIEWS REASON FOR STUDY: shoulder pain Chronic pain to left shoulder for at least 2 months TECHNIQUE: Four radiographic view(s) of the right shoulder . COMPARISON: 12/09/2024. FINDINGS: BONES/JOINTS: There is no acute fracture, malalignment or osseous abnormality. The joint spaces are normal. SOFT TISSUES: No focal soft tissue abnormality. IMPRESSION: No acute osseous abnormality. If internal derangement is of concern, MRI can be considered THIS IS AN ELECTRONICALLY VERIFIED FINAL REPORT 02/11/2025 2:03 PM - Electronically signed by Chantel Car M.D. TW: JEROME Report ID: [id number] Reading Location: [id number] Procedure Note Chantel Car MD - 02/11/2025 EXAM DESCRIPTION: XR SHOULDER LEFT 2 OR MORE VIEWS REASON FOR STUDY: shoulder pain Chronic pain to left shoulder for at least 2 months TECHNIQUE: Four radiographic view(s) of the right shoulder . COMPARISON: 12/09/2024. FINDINGS: BONES/JOINTS: There is no acute fracture, malalignment orosseous abnormality. The joint spaces are normal. SOFT TISSUES: No focal soft tissue abnormality. IMPRESSION: No acute osseous abnormality. If internal derangement is of concern, MRI can be considered THIS IS AN ELECTRONICALLY VERIFIED FINAL REPORT 02/11/2025 2:03 PM - Electronically signed by Chantel Car M.D. TW: TW Report ID: [id number] Reading Location: [place] [address] Cassie HURTADO IMDominic XR PROCEDURES Final Result * (ABNORMAL) Influenza A/B, RSV, and COVID-19 PCR Nasopharyngeal (02/11/2025 1:36 PM CDT) Pathologist [facility] COVID-19 RNA Negative Negative Comment:Testing performed by : [address] [address] Influenza A RNA Negative Negative [facility] Comment:Testing performed by : [address] [address] Influenza B RNA Negative Negative [facility] Comment:Testing performed by : [address] [address] RSV RNA Positive(A) Negative [facility] Comment: Interpretive data: Testing performed by [facility]. This test is performed using the Exam18 Xpert Xpress CoV-2/Flu/RSV plus assay. This is a multiplex, real-time reverse transcriptase PCR assay intended for the qualitative detection of nucleic acid from SARS-CoV-2, influenza A, influenza B, and respiratory syncytial virus. This assay has been cleared by the [place] Food and Drug administration. The performance characteristics have been verified by the [facility]. Results must be considered in the clinical context, and a negative result does not rule out infection. Interpretive Data last revised 2023 Testing performed by: [address] [address] Nasopharyngeal 02/11/2025 1: 36 PM CDT 02/11/2025 1:40 PM CDT Narrative JENSEN - 02/11/2025 2:22 PM CDT Is the Patient experiencing symptoms consistent with COVID?->Yes us Cassie HURTADO LAB MICROBIOLOGY - GENERAL ORDJu HERNANDEZ Final Result Performing Organization Address City/State/ZIP Co ak Phone Number JENSEN [address] [facility] Department [place] [address] from Last 3 Months Insurance [facility]PPO Address: [address] [place] [address] [facility] H[facility]/PPO Address: [address] [place], [place] [id number] [facility] H[facility]/PPO Address: [facility] [address] [place] [address] Advance Directives For more information, please contact: [phone] * Full Code (Latest Code Status on File) Date Activated Date Inactivated Comments 06/25/2023 7:38 AM 06/25/2023 11:02 PM Care Teams Geological [employer] Field Assistant Relationship Specialty Start Date End Date No, Physician PCP - General 07/18/23
[2025-05-12] MEDS: NALOXONE HCL INJ 2 MG/2 ML AMP IV PUSH (19:25)
[2025-05-12] MEDS: SODIUM CHLORIDE 0.9% IV 1,000 ML 999 ML IV CONT ×2 (19:25→23:53)
--- NOTE | 2025-05-12 19:33 | ED_ITS ---
HPI - Overdose General Chief Complaint: Overdose Stated Complaint: overdose Time Seen by Provider: 05/12/25 19:32 Source: patient Mode of arrival: ambulatory Limitations: clinical condition History of Present Illness HPI Narrative: patient is a 19-year-old male who comes to the emergency room for overdose per his information on opioids. He was taking a new opioid medication called Nucynta recreationally for the last 3 days. He has been looking to get high over the past 3 days. He is not suicidal at this time. No thoughts of suicide. He has been mixing this with cocaine. He came to the ER for not breathing well and short of breath. Chest pain. complaint: accidental overdose Onset (ago): day(s) ( Three) Timing confirmed by: other ( he has been with his friend but came into the ER alone and told us this information) Intent: other ( to get high) How Overdose Was Discovered: called family/friend Context: Intentional Overdose: other ( none) Context: Accidental Overdose: wanted to get high Associated symptoms: shortness of breath and lethargy Treatments Prior to Arrival: narcan ( patient tried 2 times of home Narcan) Related Data Allergies Allergy/AdvReac Type Severity Reaction Status Date / Time No Known Allergies Allergy Verified 01/21/24 06:14 Review of Systems 2 Review of Systems: All systems reviewed & are unremarkable except as noted in HPI and below Constitutional: Constitutional: Reports no additional constitutional complaints Eyes: Eyes: Reports no additional eye complaints ENT: Reports system reviewed and no additional complaints, except as documented Cardiovascular: Cardiovascular: Reports no additional cardiovascular complaints Respiratory: Respiratory: Reports no additional respiratory complaints Gastrointestinal: Gastrointestinal: Reports no additional gastrointestinal complaints Genitourinary: Genitourinary: Reports no additional male genitourinary complaints Musculoskeletal: Musculoskeletal: Reports no additional musculoskeletal complaints Integumentary/Breasts: Skin/Breast: Reports system reviewed and no additional complaints, except as docu Neurologic: Reports system reviewed and no additional complaints, except as documented Psychiatric: Psychiatric: Reports no additional psychiatric complaints Endocrine: Endocrine: Reports no additional endocrine complaints Hematologic/Lymphatic: Hematologic/Lymphatic: Reports no additional hematologic/lymphatic complaints Allergic/Immunologic: Allergic/Immunologic: Reports no additional allergic/immunologic complaints PMFSH Social History Social History Substance use type: marijuana, crack/cocaine, opiates and 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 Exam 2 Const: General: confusion and diaphoretic Nutritional Appearance: well nourished Orientation/consciousness: patient oriented x3 ( AA&O x2) L imitations: other limitations ( clinical condition) HENMT: Head: normal to inspection Ears: external ears normal F palomo/Nose/Sinus: Normal external nose present Eyes: Conjunctivae: conjunctivae normal Pupils: Equal, round and reactive pupils present EOM: EOMs intact bilaterally Neck: Neck: normal visual inspection Chest: Chest palpation & inspection: normal inspection of the chest Resp: Effort & Inspection: normal respiratory effort and not labored A uscultation: clear to auscultation bilaterally, crackles, no rales, no rhonchi, no wheezes and breath sounds present Cardio: Rate: regular rate Rhythm: regular rhythm Heart sounds: no murmurs GI: Inspection: non-distended GI Palp: Yes Soft to palpation and No Tenderness to palpation present (GI) Auscultation: normal bowel sounds : General: Yes bladder normal to palpation Back/Spine/Pelvis: Back: no CVA tenderness Skin: General skin exam: normal color Rashes: no rashes Wounds: no wounds Neuro: General: patient oriented x3, moves all extremities, no meningeal signs, no focal motor deficits and CN's II-XI intact bilaterally Cranial nerves: Yes Nystagmus not present Speech: No normal speech Gait exam (Neuro): gait abnormal Other: NIH score is 0, GCS is 12 Extrem: General: normal to inspection Psych: Mental Status: mental status grossly normal Affect: normal affect Attitude: cooperative Course Vital Signs Vital signs: Vital Signs Pulse Rate 98 05/12/25 19:27 Respiratory Rate 22 H 05/12/25 19:27 Temperature 36.3 C L 05/12/25 21:48 Pulse Rate 66 05/13/25 01:04 Respiratory Rate 18 05/13/25 01:04 Blood Pressure 105/55 L 05/13/25 01:04 Pulse Oximetry 100 05/13/25 01:04 Oxygen Delivery Room Air 05/12/25 21:48 MDM - Overdose MDM Narrative Medical decision making narrative: patient is a 19-year-old male with overdose on opioids and cocaine this evening. We will use Narcan. IV fluids. Check labs and x-ray. Monitor patient closely for many hours. Consider transfer for ICU. Poison control. patient desires to go home at this time after he has been here for 6-1/2 hours. Poison Control suggested a 6 hour window and repeat EKG. EKG repeat was stable. He was up walking around without difficulty. He is AAO x4. He has the decision making capacity to go home with his friend at this time. his entire visit was monitored closely and no acute problems arose. Lab Data Attestation: I reviewed the patient's lab results. 05/12/25 20:09 05/12/25 20:09 Labs: Lab Results 05/12/25 05/12/25 05/12/25 Range/Units 19:37 20:09 23:22 WBC 9.8 (4.8-10.8) K/mm3 RBC 4.96 (4.70-6.10) M/mm3 Hgb 15.0 (14.0-18.0) g/dL Hct 43.7 (40.0-54.0) % MCV 88.1 (78.0-102.0) fL MCH 30.2 (27.0-31.0) pg MCHC 34.3 (32-36) g/dL RDW 12.5 (11.6-14.4) % Plt Count 246 (150-420) K/mm3 MPV 9.6 (8.7-11.0) fl Immature Gran % (Auto) 0.3 H (0.0-0.0) % Neut % (Auto) 66.4 (50.0-70.0) % Lymph % (Auto) 24.8 (18.0-42.0) % Summers % (Auto) 7.4 (2.0-11.0) % Eos % (Auto) 0.8 L (1.0-6.0) % Baso % (Auto) 0.3 (0.0-1.0) % Lymph # (Auto) 2.43 (1.10-4.50) K/mm3 Summers # (Auto) 0.72 (0.10-0.90) K/mm3 Eos # (Auto) 0.08 (0.02-0.50) K/mm3 Baso # (Auto) 0.03 (0.00-0.10) K/mm3 Abs Immat Gran (auto) 0.03 H (0.00-0.00) K/mm3 Absolute Neuts (auto) 6.50 (1.70-7.20) K/mm3 Absolute Nucleated RBC 0.00 (0.00-0.00) K/mm3 Nucleated RBC % 0.0 (0-0.0) % Sodium 138 (137-145) mmol/L Potassium 3.5 (3.4-5.0) mmol/L Chloride 101 (98-107) mmol/L Carbon Dioxide 30 (22-30) mmol/L Anion Gap 7 (4-12) mmol/L BUN 10 (9-20) mg/dL Creatinine 0.74 (0.7-1.3) mg/dL Estim Creat Clear Calc 129 ml/min Estimated GFR > 60 (59 - ) Glucose 97 (65-110) mg/dL POC Capillary Glucose 98 84 (65-105) mg/dl Calculated Osmolality 285 (285-295) mOsm/kg Calcium 9.2 (8.4-10.2) mg/dL Magnesium 2.0 (1.6-2.3) mg/dL Total Bilirubin 0.7 (0.2-1.3) mg/dL AST 30 (17-59) U/L ALT 29 (6-50) U/L Alkaline Phosphatase 68 (38-126) U/L Total Creatine Kinase 154 (55-170) U/L Troponin I < 0.012 (0.000-0.034) ng/mL Total Protein 6.4 (6.3-8.2) g/dL Albumin 4.3 (3.5-5.1) g/dL TSH 1.780 (0.465-4.680) uIU/mL Urine Color (Yellow) Urine Appearance (Clear) Urine pH (5.0-8.0) Ur Specific [place] (1.010-1.020) Urine Protein (Negative) Urine Glucose (UA) (Negative) Urine Ketones (Negative) Ur Blood (Man) (Negative) Urine Nitrate (Negative) Urine Bilirubin (Negative) Urine Urobilinogen (0.2-1.0) mg/dL Leukocyte Esterase Rfl (Negative) OCTAVIO/UL Urine RBC (0-2) /hpf Urine WBC (0-3) /hpf Ur Squamous Epith Cells (Few) /hpf Urine Bacteria (None) /hpf Salicylates < 1.0 L (2-20) mg/dL Urine Opiates Screen (Negative) Urine Methadone Screen (Negative) Acetaminophen < 10 L (10-30) ug/mL Ur Barbiturates Screen (Negative) Ur Phencyclidine Scrn (Negative) Ur Amphetamine Screen (Negative) U Benzodiazepines Scrn (Negative) Urine Cocaine Screen U Cannabinoids Screen (Negative) Ethyl Alcohol < 10 (<10) mg/dL 05/12/25 Range/Units 23:30 WBC (4.8-10.8) K/mm3 RBC (4.70-6.10) M/mm3 Hgb (14.0-18.0) g/dL Hct (40.0-54.0) % MCV (78.0-102.0) fL MCH (27.0-31.0) pg MCHC (32-36) g/dL RDW (11.6-14.4) % Plt Count (150-420) K/mm3 MPV (8.7-11.0) fl Immature Gran % (Auto) (0.0-0.0) % Neut % (Auto) (50.0-70.0) % Lymph % (Auto) (18.0-42.0) % Summers % (Auto) (2.0-11.0) % Eos % (Auto) (1.0-6.0) % Baso % (Auto) (0.0-1.0) % Lymph # (Auto) (1.10-4.50) K/mm3 Summers # (Auto) (0.10-0.90) K/mm3 Eos # (Auto) (0.02-0.50) K/mm3 Baso # (Auto) (0.00-0.10) K/mm3 Abs Immat Gran (auto) (0.00-0.00) K/mm3 Absolute Neuts (auto) (1.70-7.20) K/mm3 Absolute Nucleated RBC (0.00-0.00) K/mm3 Nucleated RBC % (0-0.0) % Sodium (137-145) mmol/L Potassium (3.4-5.0) mmol/L Chloride (98-107) mmol/L Carbon Dioxide (22-30) mmol/L Anion Gap (4-12) mmol/L BUN (9-20) mg/dL Creatinine (0.7-1.3) mg/dL Estim Creat Clear Calc ml/min Estimated GFR (59 - ) Glucose (65-110) mg/dL POC Capillary Glucose (65-105) mg/dl Calculated Osmolality (285-295) mOsm/kg Calcium (8.4-10.2) mg/dL Magnesium (1.6-2.3) mg/dL Total Bilirubin (0.2-1.3) mg/dL AST (17-59) U/L ALT (6-50) U/L Alkaline Phosphatase (38-126) U/L Total Creatine Kinase (55-170) U/L Troponin I (0.000-0.034) ng/mL Total Protein (6.3-8.2) g/dL Albumin (3.5-5.1) g/dL TSH (0.465-4.680) uIU/mL Urine Color Yellow (Yellow) Urine Appearance Sl cloudy A (Clear) Urine pH 8.0 (5.0-8.0) Ur Specific [place] 1.015 (1.010-1.020) Urine Protein Negative (Negative) Urine Glucose (UA) Negative (Negative) Urine Ketones Negative (Negative) Ur Blood (Man) Negative (Negative) Urine Nitrate Negative (Negative) Urine Bilirubin Negative (Negative) Urine Urobilinogen 0.2 (0.2-1.0) mg/dL Leukocyte Esterase Rfl Negative (Negative) OCTAVIO/UL Urine RBC None seen (0-2) /hpf Urine WBC 0-3 (0-3) /hpf Ur Squamous Epith Cells Rare (Few) /hpf Urine Bacteria 1+ H (None) /hpf Salicylates (2-20) mg/dL Urine Opiates Screen Negative (Negative) Urine Methadone Screen Negative (Negative) Acetaminophen (10-30) ug/mL Ur Barbiturates Screen Negative (Negative) Ur Phencyclidine Scrn Negative (Negative) Ur Amphetamine Screen Negative (Negative) U Benzodiazepines Scrn Negative (Negative) Urine Cocaine Screen Pending U Cannabinoids Screen Positive A (Negative) Ethyl Alcohol (<10) mg/dL ABG Data ABG results: 05/12/25 20:19 Puncture Site Right radial ABG pH 7.47 H ABG pCO2 33.2 L ABG pO2 95.5 H ABG HCO3 23.8 ABG O2 Saturation 97.7 H ABG Base Excess 1.0 Oxyhemoglobin 96.6 O2 Delivery Device Room air O2 Liters/Min Not Reportable Imaging Data Attestation: I personally reviewed and interpreted this imaging study as follows: Radiologist's impression: Chest x-rays negative for acute process ECG Data EKG #1: Attestation: I personally reviewed and interpreted this ECG as follows: ECG completion date: 05/13/25 ECG completion time: 00:47 EKG Interpretation: normal rate, sinus rhythm, non-specific ST changes, normal QRS, RBBB ( incomplete) and right axis EKG #2: Attestation: I personally reviewed and interpreted this ECG as follows: ECG completion date: 05/13/25 ECG completion time: 00:52 EKG Interpretation: normal rate, sinus rhythm, no ectopy, non-specific ST changes, normal QRS, RBBB ( incomplete), normal QT and NL axis Critical Care Time Critical Care Time Critical Care Time: Yes Total Critical Care Time: 45 Discharge Plan Discharge Clinical Impression: Drug overdose Qualifiers: Encounter type: initial encounter Injury intent: accidental or unintentional Q ualified Code(s): T50.901A - Poisoning by unspecified drugs, medicaments and biological substances, accidental (unintentional), initial encounter Patient Disposition: Home Condition: Stable Instructions: Adult Overdose (ED), Prescription Opioid Overdose (ED) Patient Language: [place] Prescriptions: No Action omeprazole 20 mg capsule,delayed release(DR/EC) 20 mg PO DAILY 14 Days Qty: 14 0RF ondansetron 4 mg tablet,disintegrating 4 mg PO Q8H PRN (Reason: nausea and vomiting) Qty: 14 0RF Follow-up/Referrals: Kevin Roman MD [Physician] - Time of Disposition: 01:49
--- NOTE | 2025-05-12 19:35 | ECG_ITS ---
Test Date: 2025-05-12 19:22:27 Measurements Intervals [place] Rate: 98 P: 76 SD: 159 QRS: -89 QRSD: 114 T: 36 QT: 341 QTc: 437 Interpretive Statements SINUS RHYTHM INCOMPLETE RIGHT BUNDLE BRANCH BLOCK LEFT ANTERIOR FASCICULAR BLOCK BASELINE ARTIFACT- I, II, III, AVR, AVL, AVF, V1-V6 ABNORMAL ECG No previous ECG available for comparison Electronically Signed On 05-12-2025 19:52:15 CDT by Anson Dejesus D.O.
--- NOTE | 2025-05-12 19:40 | PC.NURSE ---
P.Control notified and spoke gio/ El, info received and given to Dr Kirk.
--- OUTSIDE RECORDS SUMMARY | 2025-05-12 20:15 | XMS_ITS | Clinical Summary ---
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
--- OUTSIDE RECORDS SUMMARY | 2025-05-12 20:15 | XMS_ITS | Encounter Summary ---
Author Organization [facility] Facility Care Team Providers Care Wet Sander Name Role Phone Bogdan Garcia MD Primary Care Provid er No, Physician Primary Care Provider [phone] Encounter Details Date Type Department Care Team (Latest Contact Info) Description 07/25/2017 Orders Only [facility] Provider, MD Aretha [address] [place] [id number] Social History Tobacco Use Types Packs/Day Years Used Date Smoking Tobacco: Never Assessed Sex and Gender Information Value Date Recorded Sex Assigned at Not on file Legal Sex Male 8:21 AM [employer] Gender Identity Not on file Sexual [...] documented as of this encounter Care Teams Wet Sander Relationship Specialty Start Date End Date Bogdan Garcia MD [address] [place] [address] PCP - General Family Medicine 04/01/19 07/17/23 No, Physician PCP - General 07/18/23 documented as of this encounter
--- OUTSIDE RECORDS SUMMARY | 2025-05-12 20:15 | XMS_ITS | Clinical Summary ---
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 Name Role Phone No, Physician Primary Care Provider [phone] Allergies No known active allergies Medications lamoTRIgine [...] CDT - 03/12/2025 2:18 PM CDT Emergency [facility] Emergency Department [address] [place] [address] Jose Armando Mitchell, DO Seizure-like activity (HCC) (Primary Dx); Polysubstance abuse (HCC) Discharge Disposition: Discharge to home or self care 02/11/2025 1:54 PM CDT - 02/11/2025 3:15 PM CDT Emergency [facility] Emergency Department [address] [place] [address] Acute pain of right shoulder (Primary Dx); [...] on file 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 Gender Identity Not on file Sexual [...] 05/06/2022, 016 Medical Devices Implanted Type Area Air Pollution Auditor Device Identifier Shelf Expiration Date Model / Serial / Lot Synthes 2mm 28mm Self Tap Self Retain Stardrive Cortex T6 Screw Bone 201.376.97 - [id number] Implanted:Qty: 1 on 06/25/2023 by Pete William MD at [facility] Right: Ankle Synthes I 201.376.97 / / Synthes 2mm 26mm Self Tap Self Retain Stardrive Cortex T6 Screw Bone 201.375.97 - [id number] Implanted:Qty: 1 on 06/25/2023 by Pete William MD at [facility] Right: Ankle Synthes I 201.375.97 / / [...] by Vladimir Clement M.D. CH: Report ID: [id number] Reading Location: [id number] Procedure Note Vladimir Clement Jr., MD - [...] by Vladimir Clement M.D. CH: Report ID: [id number] Reading Location: [place] [address] Jose Armando Mitchell DO IMG CT PROCEDURES Final Res ult * Influenza A/B, RSV, and COVID-19 PCR Nasopharyngeal (03/12/2025 11:21 AM CDT) [facility] COVID-19 RNA Negative Negative Comment:Testing performed by : [address] [address] Influenza A RNA Negative Negative [facility] Comment:Testing performed by : [address] [address] Influenza B RNA Negative Negative [facility] Comment:Testing performed by : [address] [address] RSV RNA Negative Negative [facility] Comment: Interpretive data: Testing performed by [facility]. This test is performed using the [employer] Xpert Xpress CoV-2/Flu/RSV plus assay. This is a multiplex, real-time reverse transcriptase PCR assay intended for the qualitative detection of nucleic acid from SARS-CoV-2, influenza A, influenza B, and respiratory syncytial virus. This assay has been cleared by the [place] Food and Drug administration. The performance characteristics have been verified by the [facility]. Results must be considered in the clinical context, and a negative result does not rule out infection. Interpretive Data last revised 2023 Testing performed by: [address] [address] Nasopharyngeal 03/12/2025 11 :21 AM CDT 03/12/2025 11:30 AM CDT Narrative JENSEN - 03/12/2025 12:15 PM CDT Is the Patient experiencing symptoms consistent with COVID?->Unknown Zarina [facility] MICROBIOLOGY - GENERAL OR DERABLES Final Result Performing Organization Address [facility] Co de Phone Number JENSEN [address] [place] [address] * eGFR (03/12/2025 11:21 AM CDT) Pathologist [facility] eGFR >90 >=60 mL/min/1. 73 m2 Comment: [...] was last reviewed 2021. Testing performed by: [facility], [address] [place] [address]., [address] Blood 03/12/2025 11:2 1 AM CDT 03/12/2025 11:30 AM CDT Zarina [facility] LAB BLOOD ORDERABLES Final Re sult Performing Organization Address [facility]/ZIP Co de Phone Number JENSEN [address] [place] [address] * (ABNORMAL) Differential, auto (03/12/2025 11:21 AM CDT) Pathologist [facility] Neutrophil abs 10.32(H) 1.50 - 6.50 K/cumm Comment:Testing performed by : [address], [place]., [address] Imm gran abs 0.08 0.00 - 0.10 K/cumm [facility] Comment:Testing performed by : [address], [place]., [address] Lymphocyte abs 2.26 0.80 - 3.30 K/cumm [facility] Comment:Testing performed by : [address], [place]., [address] Monocyte abs 0.58 0.20 - 0.80 K/cumm [facility] Comment:Testing performed by : [address], [place]., [address] Eosinophil abs 0.07 0.00 - 0.50 K/cumm [facility] Comment:Testing performed by : [address], [place]., [address] Basophil abs 0.06 0.00 - 0.10 K/cumm [facility] Comment:Testing performed by : [address] [address] Neutrophil pct 77.3 % [facility] Comment: Interpretive Data Percent cell count reference ranges are not reported, since discordance with absolute values may lead to misinterpretation of CBC data. Current Interpretive Data was last revised on 2018. Testing performed by: [address] [address] Imm gran pct 0.6 % [facility] Comment: Interpretive Data Percent cell count reference ranges are not reported, since discordance with absolute values may lead to misinterpretation of CBC data. Current Interpretive Data was last revised on 2018. Testing performed by: [address] [address] Lymphocyte pct 16.9 % [facility] Comment: Interpretive Data Percent cell count reference ranges are not reported, since discordance with absolute values may lead to misinterpretation of CBC data. Current Interpretive Data was last revised on 2018. Testing performed by: [address] [address] Monocyte pct 4.3 % [facility] Comment: Interpretive Data Percent cell count reference ranges are not reported, since discordance with absolute values may lead to misinterpretation of CBC data. Current Interpretive Data was last revised on 2018. Testing performed by: [address] [address] Eosinophil pct 0.5 % JENSEN Comment: Interpretive Data Percent cell count reference ranges are not reported, since discordance with absolute values may lead to misinterpretation of CBC data. Current Interpretive Data was last revised on 2018. Testing performed by: [address] [address] Basophil pct 0.4 % JENSEN Comment: Interpretive Data Percent cell count reference ranges are not reported, since discordance with absolute values may lead to misinterpretation of CBC data. Current Interpretive Data was last revised on 2018. Testing performed by: [address] [address] Blood 03/12/2025 11:2 1 AM CDT 03/12/2025 11:30 AM CDT us Zarina [facility] BLOOD ORDERABLES Final Re sult JENSEN [address] [facility] Department [place] [address] * (ABNORMAL) Urinalysis reflex to microscopic and culture Urine (03/12/2025 11:21 AM CDT) Color, ur Yellow Yellow Comment:Testing performed by : [address] [address] Clarity, ur Turbid(A) Clear JENSEN Comment:Testing performed by : [address] [address] Specific gravity, ur 1.025 1.003 - 1.030 JENSEN Comment:Testing performed by : [address] [address] pH, urine 5.5 JENSEN Comment: Interpretive Data U rine pH is affected by diet, medications, systemic acid-base disturbances, and renal tubular function. pH may affect urinary stone formation. For example, urine pH below 6.0 may help reduce the tendency for calcium phosphate stones and pH greater than 6.0 may reduce the tendency for uric acid stone formation. Source: [facility] [employer] Current Interpretive Data was last revised on 2017 Testing performed by: [facility], [address] [place] [address], [place]., [address] Protein, ur ql Negative Negative JENSEN ISLAS Comment:Testing performed by : [address] [address] Glucose, ur ql Negative Negative JENSEN Comment:Testing performed by : [address], [place]., [address] Ketones, ur Negative Negative JENSEN Comment:Testing performed by : [address] [address] Bilirubin, ur Negative Negative JENSEN Comment:Testing performed by : [address], [place]., [address] Blood, ur 1+(A) Negative JENSEN ISLAS Comment:Testing performed by : [address], [place]., [address] Urobilinogen, ur <2.0 <2.0 mg/dL JENSEN Comment:Testing performed by : [address] [address] Nitrite, ur Negative Negative JENSEN Comment:Testing performed by : [address], [place]., [address] Leukocyte esterase, ur Negative Negative JENSEN Comment:Testing performed by : [address] [address] UA reflex comment Reflex to microscopic UA will be performed. JENSEN Comment:Testing performed by : [address] [address] Urine 03/12/2025 11:2 1 AM CDT 03/12/2025 11:30 AM CDT us Zarina [facility] MICROBIOLOGY - GENERAL OR DERABLES Final Result JENSEN ISLAS [address] [facility] Department [place] [address] * (ABNORMAL) CBC with auto differential (03/12/2025 11:21 AM CDT) [facility] WBC 13.37(H) 3.80 - 9.90 K/cumm Comment:Testing performed by : [address], [address] Hgb 17.9(H) 13.0 - 17.5 g/dL JENSEN Comment:Testing performed by : [address], [address] Hct 51.2(H) 38.9 - 50.3 % JENSEN Comment:Testing performed by : [address], [address] Plt 259 150 - 400 K/cumm JENSEN Comment:Testing performed by : [address], [address] MPV 10.0 9.1 - 12.3 fL JENSEN Comment:Testing performed by : [address], [address] RBC 6.08(H) 4.30 - 5.80 M/cumm JENSEN Comment:Testing performed by : [address], [address] MCV 84.2 81.3 - 96.4 fL JENSEN Comment:Testing performed by : [address], [address] MCH 29.4 27.1 - 33.3 pg JENSEN Comment:Testing performed by : [address], [address] MCHC 35.0 32.3 - 35.7 g/dL JENSEN Comment:Testing performed by : [address], [address] RDW CV 13.1 11.1 - 14.9 % JENSEN Comment:Testing performed by : [address], [address] RDW SD 39.9 35.7 - 48.1 fL JENSEN Comment:Testing performed by : [address], [address] NRBC abs 0.00 0.00 - 0.01 K/cumm JENSEN Comment:Testing performed by : [facility], [address] [place] [address]., [address] Blood 03/12/2025 11:2 1 AM CDT 03/12/2025 11:30 AM CDT Zarina [facility] LAB BLOOD ORDERABLES Final Re sult JENSEN [address] [facility] Department [place] [address] * (ABNORMAL) Drugs of Abuse Screen, Urine without Confirmation (03/12/2025 11:21 AM CDT) [facility] Amphetamine, ur Not Detected CutOff 500ng/mL Comment: Interpretive Data - Amphetamines: Samples containing greater than 500 ng/mL d-methamphetamine or other cross-reacting amphetamine compounds are reported as positive. Amphetamine immunoassays are subject to significant false positive rates due to cross-reactivity of non-amphetamine drugs. Confirmatory testing required for definitive results. Current Interpretive Data was last reviewed 2023. Testing performed by: [address] [address] Barbiturates, ur Not Detected CutOff 200ng/mL JENSEN Comment: Interpretive Data - Barbiturates: Samples containing greater than 200 ng/mL secobarbital or other cross-reacting barbiturate compounds are reported as positive. False positive and false negative results are possible. Confirmatory testing required for definitive results. Current Interpretive Data was last reviewed 2023. Testing performed by: [address] [address] Benzodiazepines, ur Screen Positive, presumptive (A) CutOff 100ng/mL JENSEN Comment: Interpretive Data - Benzodiazepines: Samples containing greater than 100 ng/mL nordiazepam or other cross-reacting compounds are reported as positive. False positive and false negative results are possible. Confirmatory testing required for definitive results. Current Interpretive Data was last reviewed 2023. Testing performed by: [address] [address] Cannabinoids, ur Screen Positive, presumptive (A) CutOff 50 ng/mL [facility] Comment: Interpretive Data - Cannabinoids: Samples containing greater than 50 ng/mL delta-9 THC -COOH or other cross- reacting compounds are reported as positive. False positive and false negative results are possible. Confirmatory testing required for definitive results. Current Interpretive Data was last reviewed 2023. Testing performed by: [facility], [address] [place] [address]., [address] Cocaine, ur Not Detected CutOff 150ng/mL [facility] Comment: Interpretive Data - Cocaine: Samples containing greater than 150 ng/mL benzoylecgonine or other cross- reacting compounds are reported as positive. False positive and false negative results are possible. Confirmatory testing required for definitive results. Current Interpretive Data was last reviewed 2023. Testing performed by: [facility], [address] [place] [address]., [address] Fentanyl, Ur Not Detected CutOff 5 ng/mL [facility] Comment: Interpretive Data - Fentanyl: Samples containing greater than 1 ng/mL fentanyl or other cross-reacting fentanyl compounds are reported as positive. False positive and false negative results are possible. Confirmatory testing required for definitive results. Current Interpretive Data was last reviewed 2023. Testing performed by: [address] [address] Methadone, ur Not Detected CutOff 300ng/mL [facility] Comment: Interpretive Data - Methadone: Samples containing greater than 300 ng/mL d,l-methadone or other cross-reacting compounds are reported as positive. False positive and false negative results are possible. Confirmatory testing required for definitive results. Current Interpretive Data was last reviewed 2023. Testing performed by: [address] [address] Opiates, ur Not Detected CutOff 300ng/mL [facility] Comment: Interpretive Data - Opiates: Samples containing greater than 300 ng/mL morphine or other cross-reacting compounds are reported as positive. False positive and false negative results are possible. Confirmatory testing required for definitive results. Current Interpretive Data was last reviewed 2023. Testing performed by: [address] [address] Oxycodone, ur Not Detected CutOff 100ng/mL [facility] Comment: Interpretive Data - Oxycodone: Samples containing greater than 100 ng/mL oxycodone or other cross-reacting compounds are reported as positive. False positive and false negative results are possible. Confirmatory testing required for definitive results. Current Interpretive Data was last reviewed 2023. Testing performed by: [address] [address] Phencyclidine, ur Not Detected CutOff 25 ng/mL JENSEN Comment: Interpretive Data - Phencyclidine: Samples containing greater than 25 ng/mL phencyclidine or other cross-reacting compounds are reported as positive. False positive and false negative results are possible. Confirmatory testing required for definitive results. Current Interpretive Data was last reviewed 2023. Testing performed by: [address] [address] Urine Creatinine 235 mg/dL JENSEN Comment: Interpretive Data Urine Creatinine: < 10 mg/dL is extremely dilute = or > 10 but < 20 mg/dL is dilute = or > 20 mg/dL is normal Current Interpretive Data was last revised on 2017. Testing performed by: [address] [address] Urine 03/12/2025 11:2 1 AM CDT 03/12/2025 11:30 AM CDT Narrative [facility] - 03/12/2025 11:56 AM CDT Drug of Abuse screening is performed by immunoassay for medical purposes only. This is not to be used for Pain Management purposes. Zarina HURT[facility] LAB URINE ORDERABLES Final Re sult [facility] [address] [facility] Department [place] [address] * (ABNORMAL) Urinalysis, microscopic only (03/12/2025 11:21 AM CDT) WBC, ur 11-20(A) 0 - 5 /HPF Comment:Testing performed by : [address] [address] RBC, ur 3-5(A) 0 - 2 /HPF JENSEN Comment:Testing performed by : [facility], [address] [place] [address]., [address] Epithelial cells, squamous, ur 1-5 0 - 5 /HPF JENSEN Comment:Testing performed by : [facility], [address] [place] [address]., [address] Yeast, ur 1+(A) JENSEN Comment:Testing performed by : [address] [address] Mucous, ur Present(A) JENSEN Comment:Testing performed by : [address], [place]., [address] Culture Reflex Comment Reflex to urine culture will be performed. JENSEN Comment:Testing performed by : [address] [address] Urine 03/12/2025 11:2 1 AM CDT 03/12/2025 11:30 AM CDT Zarina HURT[facility] LAB URINE ORDERABLES Final Re sult Performing Organization Address [facility] Co de Phone Number [facility] [address] [facility] Department [place] [address] * Urine culture Urine (03/12/2025 11:21 AM CDT) Report Final Report: Less than 100,000 colonies/mL (clinically insignificant growth based on current clinical standards) Comment:Testing performed by : [facility], [address] [facility] [place]., [address] Organism (CLINICALLY INSIGNIFICANT GROWTH JENSEN Urine 03/12/2025 11:2 1 AM CDT 03/12/2025 5:38 PM CDT Narrative JENSEN - 03/13/2025 7:25 PM CDT Urine culture reflexed based upon urinalysis results. Testing performed by [facility] Microbiology Laboratory ([phone]) Zarina [facility] MICROBIOLOGY - GENERAL OR DERABLES Final Result Performing Organization Address [facility]/ZIP Co de Phone Number JENSEN [address] [facility] Department [place] [address] * Ethanol (03/12/2025 11:21 AM CDT) Pathologist [facility] Ethanol <10 <=10 mg/dL Comment: Interpretive Data Legal limit of intoxication > or = 80 mg/dL Levels > or = 400 mg/dL are potentially TOXIC. Current interpretive data was last revised on 2018. Testing performed by: [address] [address] Blood 03/12/2025 11:2 1 AM CDT 03/12/2025 11:30 AM CDT Zarina [facility] BLOOD ORDERABLES Final Re sult JENSEN [address] [facility] Department [place] [address] * Comprehensive metabolic panel (03/12/2025 11:21 AM CDT) [facility] Sodium 138 135 - 145 mmol/L Comment:Testing performed by : [address] [address] Potassium, pl 4.6 3.3 - 4.9 mmol/L JENSEN Comment:Testing performed by : [address] [address] Chloride 100 97 - 110 mmol/L JENSEN Comment:Testing performed by : [address] [address] CO2 26 22 - 32 mmol/L JENSEN Comment:Testing performed by : [address] [address] Anion gap 12 2 - 15 mmol/L JENSEN Comment:Testing performed by : [address] [address] BUN 12 6 - 25 mg/dL JENSEN Comment:Testing performed by : [address] [address] Creatinine 0.87 0.80 - 1.30 mg/dL JENSEN Comment:Testing performed by : [address] [address] Glucose 111 70 - 199 mg/dL JENSEN [...] was last revised 2022. Testing performed by: [address] [address] Calcium 10.0 8.5 - 10.3 mg/dL JENSEN Comment:Testing performed by : [address] [address] Bilirubin, total 1.0 0.1 - 1.2 mg/dL JENSEN Comment:Testing performed by : [address] [address] Protein, pl 8.1 6.5 - 8.5 g/dL JENSEN Comment:Testing performed by : [address] [address] Albumin 4.9 3.5 - 5.0 g/dL JENSEN Comment:Testing performed by : [address] [address] Alk phos 102 40 - 130 Units/L JENSEN Comment:Testing performed by : [address] [address] ALT 26 7 - 55 Units/L JENSEN Comment:Testing performed by : [address] [address] AST 30 10 - 50 Units/L JENSEN Comment:Testing performed by : [address] [address] Blood 03/12/2025 11:2 1 AM CDT 03/12/2025 11:30 AM CDT Zarina HURT[facility] BLOOD ORDERABLES Final Re sult Performing Organization Address City/[facility]/ZIP Co de Phone Number JENSEN [address] [address] * N. gonorrhoeae/C. trachomatis Amplification Urine (02/11/2025 2:26 PM CDT) C. trachomatis Not Detected Not Detected Comment:Testing performed by : [facility], [address] [place] [address]., [address] N. gonorrhoeae Not Detected Not Detected JENSEN Comment: Interpretive Data This assay detects Chlamydia trachomatis and Neisseria gonorrhoeae by nucleic acid amplification testing (NAAT). This assay has been cleared by the [place] Food and Drug administration. The performance characteristics of this test have been verified by the [facility]. The performance characteristics of this test have not been evaluated in individuals less than 14 years of age. Current Interpretive Data last revised 2023. Testing performed by: [facility], [address] [place] [address]., [address] Urine (None) 02/11/2025 2:26 PM CDT 02/11/2025 2:41 PM CDT Cassie [facility] MICROBIOLOGY - GENERAL ORDE RABLES Final Result Performing Organization Address City/[facility] Co de Phone Number JENSEN [facility] [place] [address] * Trichomonas vaginalis PCR Urine (02/11/2025 2:26 PM CDT) Trichomonas DNA Not Detected Not Detected Comment:Testing performed by : [address] [address] Urine 02/11/2025 2:26 PM CDT 02/11/2025 2:42 PM CDT Narrative JENSEN - 02/11/2025 3:54 PM CDT Interpretive Data: This assay detects Trichomonas vaginalis by nucleic acid amplification testing (NAAT). This assay has been cleared by the [place] Food and Drug administration. The performance characteristics of this test have been verified by the [facility] laboratory. Excess blood in specimens may be inhibitory and result in false negative results. The performance of this test has not been evaluated in women or individuals less than 18 years of age. Cassie [facility] MICROBIOLOGY - GENERAL ORDE MARY Final Result JENSEN [address] [facility] Department [place] [address] * XR Shoulder Left 2 or More [...] Chantel Car M.D. TW: JEROME Report ID: [id number] Reading Location: [id number] Procedure Note Chantel Car MD - 02/11/2025 [...] Chantel Car M.D. TW: TW Report ID: [id number] Reading Location: [place] [address] Cassie HURTADO IMDominic XR PROCEDURES Final Result * (ABNORMAL) Influenza A/B, RSV, and COVID-19 PCR Nasopharyngeal (02/11/2025 1:36 PM CDT) Pathologist [facility] COVID-19 RNA Negative Negative Comment:Testing performed by : [address] [address] Influenza A RNA Negative Negative [facility] Comment:Testing performed by : [address] [address] Influenza B RNA Negative Negative [facility] Comment:Testing performed by : [address] [address] RSV RNA Positive(A) Negative [facility] Comment: Interpretive data: Testing performed by [facility]. This test is performed using the [employer] Xpert Xpress CoV-2/Flu/RSV plus assay. This is a multiplex, real-time reverse transcriptase PCR assay intended for the qualitative detection of nucleic acid from SARS-CoV-2, influenza A, influenza B, and respiratory syncytial virus. This assay has been cleared by the [place] Food and Drug administration. The performance characteristics have been verified by the [facility]. Results must be considered in the clinical context, and a negative result does not rule out infection. Interpretive Data last revised 2023 Testing performed by: [address] [address] Nasopharyngeal 02/11/2025 1: 36 PM CDT 02/11/2025 1:40 PM CDT Narrative JENSEN - 02/11/2025 2:22 PM CDT Is the Patient experiencing symptoms consistent with COVID?->Yes us Cassie [facility] MICROBIOLOGY - GENERAL ORDJu HERNANDEZ Final Result Performing Organization Address City/State/ZIP Co wy Phone Number JENSEN [address] [facility] [place] [address] from Last 3 Months Insurance [facility] PLUS [facility] PLUS [facility] PLUS Advance Directives For more information, please contact: [phone] * Full Code (Latest Code Status on File) Date Activated Date Inactivated Comments 06/25/2023 7:38 AM 06/25/2023 11:02 PM Care Teams [employer] Relationship Specialty Start Date End Date No, Physician PCP - General 07/18/23
[2025-05-12 20:25] LABS: HCO3 ABG 23.8 mmol/L (23-29); Oxygen Saturation ABG 97.7 % (95-97); PCO2 ABG 33.2 mmHg (35-45); PO2 ABG 95.5 mmHg (80-90)
[2025-05-12 20:25] LABS: Hematocrit 43.7 % (40.0-54.0); Hemoglobin 15.0 g/dL (14.0-18.0); Immature Granulocyte Percent A 0.3 % (0.0-0.0); Lymphocytes Absolute Auto 2.43 K/mm3 (1.10-4.50); Mean Corpuscular HGB Conc 34.3 g/dL (32-36); Mean Corpuscular Hemoglobin 30.2 pg (27.0-31.0); Mean Corpuscular Volume 88.1 fL (78.0-102.0); Nucleated Red Blood Cells Absolute Auto 0.00 K/mm3 (0.00-0.00); Nucleated Red Blood Cells Perc 0.0 % (0-0.0); Platelet Count Result 246 K/mm3 (150-420); Red Blood Count 4.96 M/mm3 (4.70-6.10); White Blood Count 9.8 K/mm3 (4.8-10.8)
[2025-05-12 20:45] LABS: Acetaminophen < 10 ug/mL (10-30); Salicylate < 1.0 mg/dL (2-20)
[2025-05-12 20:59] LABS: Modified Allen's Test Pass; Site Drawn RIGHT RADIAL
--- NOTE | 2025-05-12 21:00 | PC.NURSE ---
Pt resting, continuing to monitor, VSS, SR on monitor. POC for observation discussed w/ pt and will continue to monitor for about 6 hrs. Pt has call valdes at side, no further c/o at this time.
[2025-05-12 21:05] LABS: Anion Gap 7 mmol/L (4-12); Bilirubin,Total 0.7 mg/dL (0.2-1.3); Blood Urea Nitrogen 10 mg/dL (9-20); Calcium 9.2 mg/dL (8.4-10.2); Carbon Dioxide 30 mmol/L (22-30); Chloride 101 mmol/L (98-107); Estimated CRCL calculation 129 ml/min; Estimated Glomerular Filt Rate > 60; Glucose 97 mg/dL (65-110); Osmolality Calculated 285 mOsm/kg (285-295); Potassium 3.5 mmol/L (3.4-5.0); Sodium 138 mmol/L (137-145)
[2025-05-12 21:06] LABS: Alanine Aminotransferase 29 U/L (6-50); Albumin Level 4.3 g/dL (3.5-5.1); Alkaline Phosphatase 68 U/L (38-126); Aspartate Amino Transferase 30 U/L (17-59); Total Protein 6.4 g/dL (6.3-8.2); Troponin I < 0.012 ng/mL (0.000-0.034)
[2025-05-12 21:21] LABS: Thyroid Stimulating Hormone 1.780 uIU/mL (0.465-4.680)
[2025-05-12 21:37] LABS: Creatine Kinase 154 U/L (55-170); Magnesium 2.0 mg/dL (1.6-2.3)
--- NOTE | 2025-05-12 22:00 | PC.NURSE ---
Pt sleeping, RR even and nonlabored, VSS, continuing to monitor.
--- NOTE | 2025-05-12 23:15 | PC.NURSE ---
Pt diaphoretic and clothing and blankets wet w/ sweat. Pt trembling when awakened and shivering. Pt reassessed and noted dilated pupils remain. Pt RR even and nonlabored, ERP notified of pt condition. VSS, will continue to monitor. Pt placed in dry clothing, awakens and answers questions, pt unable to urinate, orders obtained.
--- NOTE | 2025-05-12 23:49 | ECG_ITS ---
Test Date: 2025-05-12 23:49:54 Measurements Intervals [place] Rate: 72 P: 55 MS: 152 QRS: 112 QRSD: 118 T: 35 QT: 389 QTc: 428 Interpretive Statements SINUS RHYTHM RIGHT AXIS DEVIATION INCOMPLETE RIGHT BUNDLE BRANCH BLOCK DELAYED PRECORDIAL R/S TRANSITION BASELINE ARTIFACT- II, III, V1-V2 BORDERLINE ECG Compared to ECG 05/12/2025 19:22:27 Right-axis deviation now present Electronically Signed On 05-13-2025 06:20:29 CDT by Anson Dejesus D.O.
[2025-05-12 23:57] LABS: Glucose Urine UA Negative (Negative); Leukocyte Esterase Ur Negative LEU/UL (Negative); Nitrate Urine Negative (Negative); Specific Grav Ur 1.015 (1.010-1.020)
[2025-05-13 00:02] VITALS: BP 113/68; PULSE 66; RESP 16; O2SAT 100
[2025-05-13 00:34] LABS: Cannabinoid Screen Urine Positive (Negative)
[2025-05-13 00:42] LABS: Add Urine Microscopic? YES; Appearance Urine Sl Cloudy (Clear)
--- NOTE | 2025-05-13 00:52 | PC.NURSE ---
Pt sleeping, awakens when spoken to and follows commands. Continuing to monitor. POC discussed w/ pt about possible need for transfer to another facility for observation d/t OD of type of meds. Pt not wanting transfer at this time. VSS, monitor continues to show SR. Pt falls back asleep easily when leaving room. Pt still noted to have slight diaphoresis but reports feeling chills.
[2025-05-13 01:00] VITALS: PULSE 60; RESP 26; O2SAT 99
--- NOTE | 2025-05-13 01:03 | PC.NURSE ---
Pt friend here and at bedside. Pt awakens to talk to his friend and continues to state he wants to go home. Fluids continuing and continue to monitor. VSS.
[2025-05-13 01:04] VITALS: BP 105/55; PULSE 66; RESP 18; O2SAT 100
--- NOTE | 2025-05-13 01:34 | PC.NURSE ---
Pt awake and up and ambulated to BR to urinate and back to bed, VSS, pt wanting to go home. No new sxs noted. Pts friend here to give pt ride. ERP notified of pts condition.
--- NOTE | 2025-05-13 01:43 | PC.NURSE ---
Pt dressing himself in room and ambulates steadily, speech clear and VS. POC to d/c home w/ friend.
[2025-05-13 01:54] VITALS: BP 118/75; PULSE 68; RESP 18; TEMP 36.5; O2SAT 98
== END 2025-05-13 01:54 | disposition home or self-care (01) ==
PROVIDERS: Emergency Provider Emergency Medicine
DX: T40.2X1A Poisoning by other opioids, accidental (unintentional), initial encounter (principal); T40.5X1A Poisoning by cocaine, accidental (unintentional), initial encounter; R07.9 Chest pain, unspecified; R06.02 Shortness of breath; R53.83 Other fatigue
CPT/HCPCS: 36415; 36600; 71045; 80053; 80143; 80179; 80307; 81001; 82077; 82550; 82805; 82948; 83735; 84443; 84484; 85025; 93005; 96361; 96374; 99284; J2312; J7030